=== PATIENT | male | born 1970 | race Caucasian/White ===

== ENCOUNTER 2018-04-06 15:48 | Emergency (ER) | payer OTHER, MEDICAID ==
[2018-04-06] MEDS ORDERED: DIPH/PERTUSS(ACELL)/TETANUS VAC/PF 0.5 ML SYR (>=10YO) IM ONE (16:55)
[2018-04-06] MEDS ORDERED: HYDROCODONE/ACETAMINOPHEN 5-325 MG TABLET PO ONE (16:55)
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
[2018-04-06 18:47] VITALS: BP 128/96
== END 2018-04-06 18:47 | disposition home or self-care (01) ==
LOC: ER 15:48
DX: S63.502A Unspecified sprain of left wrist, initial encounter (principal); S29.012A Strain of muscle and tendon of back wall of thorax, initial encounter; S16.1XXA Strain of muscle, fascia and tendon at neck level, initial encounter; S43.402A Unspecified sprain of left shoulder joint, initial encounter; Z23 Encounter for immunization; V89.2XXA Person injured in unspecified motor-vehicle accident, traffic, initial encounter
CPT/HCPCS: 99284; 73630; 73030; 72070; 73110; 72125; 90715; L3908